=== PATIENT | female | born 1975 | race Asian ===

== ENCOUNTER 2019-08-09 10:28 | Emergency (ER) | payer OTHER ==
[2019-08-09 10:33] VITALS: BP 107/78; PULSE 57; TEMP 97.9
[2019-08-09] MEDS ORDERED: LIDO 2%/EPI 1:200000 PRESRVFRE (20 ML SDVIAL) ONE (11:12)
[2019-08-09] MEDS ORDERED: DIPHTH,PERTUSS(ACELL),TET 0.5 ML DISP.SYRIN IM ONE (11:37)
[2019-08-09] MEDS ORDERED: LIDO 2%/EPI 1:200000 PRESRVFRE (20 ML SDVIAL) EP ONE (11:38)
--- NOTE | 2019-08-09 11:40 | PDOC ---
History of Present Illness - General Chief Complaint: Injury Stated Complaint: FACIAL LACERATION Time Seen by Provider: 08/09/19 10:58 - History of Present Illness Initial Comments: 08/09/19 11:50 Chief complaint: Laceration forehead HPI: Patient struck her forehead against a shelf late last night, sustaining a laceration. Bleeding subsided. No pain or swelling. No loss of consciousness or other neurologic symptoms Review of systems: Reviewed and noncontributory Past medical history: Healthy female, 3 para 3, no active medical or surgical problems Social/family history: Stable home and family, 3 young children, in attendance, no social problems Physical exam: Alert and oriented well-developed well-nourished no acute distress cheerful and cooperative Afebrile, vital signs normal Head exam reveals a Y shaped, superficial laceration just above the lateral left eyebrow. There is no bleeding. There is no swelling, hematoma, or purulence. There is no point tenderness to palpation. Remainder of the head is atraumatic. PERRLA, fundi benign, conjunctiva clear, EOMs full without diplopia, visual martell intact to confrontation ENT clear Neck without tenderness or deformity, full range of motion without pain Lung, heart, and abdomen exams normal Extremities without visible or palpable trauma Neurological C2 to 12 intact. Strength full and symmetric. No focal sensorimotor deficits. Gait stable and unimpaired Impression: Superficial forehead laceration Plan: Suture repair as described in procedure note. Past History - Medical History Allergies/Adverse Reactions: Allergies Allergy/AdvReac Type Severity Reaction Status Date / Time No Known Allergies Allergy Verified 08/09/19 10:29 Home Medications: Ambulatory Orders NK [No Known Home Medication] 08/09/19 COPD: No Other medical history: pt denies - Psycho-Social/Smoking History Smoking History: Never smoked Have you smoked in the past 12 months: No Information on smoking cessation initiated: No - Substance Abuse Hx (Audit-C & DAST Scrn) How often the patient has a drink containing alcohol: Never Score: In Men: 4 or > Positive; In Women: 3 or > Positive: 0 Screen Result (Pos requires Nsg. Audit-10AR): Negative In the last yr the pt used illegal drug/Rx for NonMed reason: No Score: Yes response is considered Positive: 0 Screen Result (Positive result requires Nsg. DAST-10): Negative *Physical Exam - Vital Signs Last Vital Signs Temp Pulse Resp BP Pulse Ox 97.9 F 57 L 18 107/78 99 08/09/19 10:28 08/09/19 10:28 08/09/19 10:28 08/09/19 10:28 08/09/19 10:28 Medical Decision Making - Medical Decision Making 08/09/19 11:53 Procedure note: Repair of facial laceration Skin prepped with Betadine. Wound scrubbed and irrigated with normal saline. Explored. Superficial, involving only the epidermis and a minimal amount of subcutaneous tissue. As noted, there was no tenderness or hematoma Local anesthesia 2% lidocaine with epi, less than 0.5 cc was necessary with good result After more washing and irrigation, hemostasis with pressure, and interrupted skin sutures with 6-0 nylon were placed x4, approximating well be skin edges along the arms of the Y. Wound care instructions to the patient and her . Fully ambulatory and in no pain or other distress at discharge to follow-up as directed. Discharge - Discharge Information Problems reviewed: Yes Clinical Impression/Diagnosis: Facial laceration Qualifiers: Encounter type: initial encounter Qualified Code(s): S01.81XA - Laceration without foreign body of other part of head, initial encounter Condition: Improved Disposition: HOME - Admission No - Follow up/Referral - Patient Discharge Instructions Patient Printed Discharge Instructions: DI for Laceration Repair Additional Instructions: Keep clean and dry. Wound care as directed. Recheck if sign of infection. Otherwise return for suture removal 4 to 5 days. - Post Discharge Activity
== END 2019-08-09 11:43 | disposition home or self-care (01) ==
LOC: FER 10:28 → EDBD 10:28 → FER 11:43
PROC: 3E0234Z Introduction of Serum, Toxoid and Vaccine into Muscle, Percutaneous Approach (ICD-10-PCS; principal; 2019-08-09)
PROC: 0HQ1XZZ Repair Face Skin, External Approach (ICD-10-PCS; principal; 2019-08-09)
DX: S01.81XA Laceration without foreign body of other part of head, initial encounter (principal); W22.8XXA Striking against or struck by other objects, initial encounter
CPT/HCPCS: 90715; 99282-25

== ENCOUNTER 2019-08-14 09:00 | Emergency (ER) | payer OTHER ==
--- NOTE | 2019-08-14 09:16 | PDOC ---
Suture Removal/Wound Check HPI - History of Present Illness Chief Complaint: Suture/Staple Removal(Here) Stated Complaint: SUTURE REMOVAL Time Seen by Provider: 08/14/19 09:08 History Source: Yes: Patient Exam Limitations: Yes: No Limitations Treated at: [facility] Date of Last ED visit: 08/10/19 - Previous ED Treatment Type of procedure performed on last visit: Yes: Laceration Repair Antibiotics Prescribed: No - Onset of Previous Treatment Date of Occurence: 08/09/19 Comment:: 08/14/19 09:15 43y F presents for suture removal Had struck her head against a shelf 5 days ago and had a suture repair. No complaints. has been using bacitracin. no signs of infection 4 simple interrupted sutures removed without dififculty exam: general: no distress skin: forehead wound well healed and approximated. No bleeding/erythema /induration will have pt continue using sunscreen clean/wash gently retunr precautions were discussed Past History - Medical History Allergies/Adverse Reactions: Allergies Allergy/AdvReac Type Severity Reaction Status Date / Time No Known Allergies Allergy Verified 08/09/19 10:29 Home Medications: Ambulatory Orders NK [No Known Home Medication] 08/09/19 COPD: No - Psycho-Social/Smoking History Smoking History: Never smoked Have you smoked in the past 12 months: No - Substance Abuse Hx (Audit-C & DAST Scrn) How often the patient has a drink containing alcohol: Never Score: In Men: 4 or > Positive; In Women: 3 or > Positive: 0 Screen Result (Pos requires Nsg. Audit-10AR): Negative In the last yr the pt used illegal drug/Rx for NonMed reason: No Score: Yes response is considered Positive: 0 Screen Result (Positive result requires Nsg. DAST-10): Negative *Physical Exam - Vital Signs Last Vital Signs Temp Pulse Resp BP Pulse Ox 98.0 F 53 L 14 104/65 100 08/14/19 09:07 08/14/19 09:07 08/14/19 09:07 08/14/19 09:07 08/14/19 09:07 Discharge - Discharge Information Problems reviewed: Yes Clinical Impression/Diagnosis: Visit for suture removal Condition: Good Disposition: HOME - Admission No - Follow up/Referral - Patient Discharge Instructions Patient Printed Discharge Instructions: DI for Suture Removal Additional Instructions: Keep the area clean You may wash it gently Use sunscreen when outside. Print Language: TAMAZIGHT - Post Discharge Activity
[2019-08-14 09:17] VITALS: BP 104/65; PULSE 53; TEMP 98; BMI 19.8
== END 2019-08-14 09:25 | disposition home or self-care (01) ==
LOC: FER 09:00
DX: S01.81XA Laceration without foreign body of other part of head, initial encounter (principal); Z48.02 Encounter for removal of sutures
CPT/HCPCS: 99281-25